=== PATIENT | female | born 1975 | race Caucasian/White ===

== ENCOUNTER → 2018-06-27 | Outpatient (CLI) | payer OTHER ==
[~2018-06-27] MED LIST: ALLEGRA-D 12 H1 EAC2; BENADRYL25 MG; CENTRUM CHEWAB1 EACH; CITRACAL + D C1 EACH; METHOTREXATE 22.5 M1; OMEPRAZOLE40 MG PO; PROVENTIL HFA6.7 G1 INH; TRI-SPRINTEC1 EACH; VISTARIL 25 MG25 M1 PO; ZOFRAN 4 MG ORAL4 MG; ZOFRAN ODT4 MG PO; [UNRECOGNIZED DRUG - OTHER]
== END ==
LOC: M.RAD 14:59
DX: R76.11 Nonspecific reaction to tuberculin skin test without active tuberculosis (principal); R89.9 Unspecified abnormal finding in specimens from other organs, systems and tissues